=== PATIENT | male | born 1980 | race Caucasian/White ===

== ENCOUNTER 2016-08-20 10:11 | Emergency (ER) | payer MEDICAID ==
[2016-08-20 10:21] VITALS: TEMP 97.7
[2016-08-20] MEDS ORDERED: NITROGLYCERIN 0.4 MG TAB SL PRN (10:21)
[2016-08-20] MEDS ORDERED: ASPIRIN 81 MG CHEWABLE CTB ONE (10:21)
[2016-08-20] MEDS ORDERED: ASPIRIN 81 MG CHEWABLE CTB PO STA (10:21)
[2016-08-20] MEDS ORDERED: LORAZEPAM 2 MG/ML SOL IV ONE (10:24)
[2016-08-20] MEDS: SODIUM CHLORIDE 0.9% FLUSH 10 ML SOL IV PRN ×2 (10:25→10:30)
[2016-08-20] MEDS ORDERED: LIDOCAINE HCL 2% (VISCOUS) 20 ML SOL MT ONE (10:27)
[2016-08-20] MEDS ORDERED: LORAZEPAM 2 MG/ML SOL ONE (10:28)
[2016-08-20] MEDS ORDERED: ALUMINUM/MAGNESIUM 30 ML SUS PO ONE (10:29)
[2016-08-20 10:40] LABS: BASOPHILS % (AUTO) 2 % (0-3); EOSINOPHILS % (AUTO) 1 % (0-9); HEMATOCRIT 43 % (39-53); MEAN CORPUSCULAR HGB CONC 36.5 gm/dl (32.0-36.0); MEAN CORPUSCULAR VOLUME 82 fL (80-100); NEUTROPHILS % (AUTO) 47.6 % (37-80)
[2016-08-20] MEDS ORDERED: LIDOCAINE HCL 2% (VISCOUS) 20 ML SOL ONE (10:52)
[2016-08-20] MEDS ORDERED: ALUMINUM/MAGNESIUM 30 ML SUS ONE (10:52)
[2016-08-20 10:54] LABS: CALCIUM 8.3 mg/dl (8.5-10.1); GLOM FILT RATE 108 mL/min (>60); POTASSIUM 3.8 mMol/L (3.5-5.1); SODIUM 136 mMol/L (136-145)
[2016-08-20 12:09] VITALS: O2SAT 98
[2016-08-20 12:12] VITALS: BP 113/87; PULSE 90; RESP 18
== END 2016-08-20 12:01 | disposition home or self-care (01) | DRG 313 ==
LOC: ED 10:11
DX: R07.89 Other chest pain (principal)
CPT/HCPCS: 36415; 71010; 80048; 82550; 84484; 85025; 85610; 85730; 93005; 96374; 99284; J2060

== ENCOUNTER 2017-02-02 18:41 | Emergency (ER) | payer OTHER ==
[2017-02-02 19:14] VITALS: RESP 18; TEMP 98.3
[2017-02-02] MEDS ORDERED: MORPHINE SULFATE 10 MG/ML SOL IV ONE (19:34)
[2017-02-02] MEDS ORDERED: MORPHINE SULFATE 10 MG/ML SOL ONE (19:37)
[2017-02-02] MEDS: SODIUM CHLORIDE 0.9% FLUSH 10 ML SOL IV PRN ×3 (19:40→20:25)
[2017-02-02 20:08] LABS: BASOPHILS % (AUTO) 1 % (0-3); EOSINOPHILS % (AUTO) 1 % (0-9); HEMATOCRIT 38 % (39-53); MEAN CORPUSCULAR HGB CONC 35.5 gm/dl (32.0-36.0); MEAN CORPUSCULAR VOLUME 85 fL (80-100); MONOCYTES % (AUTO) 7.4 % (0-12); NEUTROPHILS % (AUTO) 72.3 % (37-80)
[2017-02-02 20:18] LABS: CALCIUM 8.1 mg/dl (8.5-10.1); POTASSIUM 4.2 mMol/L (3.5-5.1)
[2017-02-02] MEDS ORDERED: LIDOCAINE HCL 2% GEL TOP ONE ×2 (20:23→20:24)
[2017-02-02] MEDS ORDERED: KETOROLAC TROMETHAMINE 30 MG/ML SOL IV ONE (20:23)
[2017-02-02] MEDS ORDERED: KETOROLAC TROMETHAMINE 30 MG/ML SOL ONE (20:24)
[2017-02-02] MEDS ORDERED: APAP/OXYCODONE 325/5 TAB PO ONE (20:56)
[2017-02-02] MEDS ORDERED: VANCOMYCIN HCL 500 MG PDS 1,000 MG in SODIUM CHLORIDE 0.9% 250 ML 250 ML IV ONE (20:58)
[2017-02-02] MEDS ORDERED: VANCOMYCIN HYDROCHLORIDE 500 MG PDS IV ONE (21:00)
[2017-02-02] MEDS ORDERED: DOXYCYCLINE 100 MG TAB PO SCH (21:00)
[2017-02-02] MEDS ORDERED: APAP/OXYCODONE 325/5 TAB ONE (21:09)
[2017-02-02] MEDS ORDERED: DOXYCYCLINE 100 MG TAB ONE (21:11)
[2017-02-02 22:05] VITALS: BP 120/89; PULSE 83; O2SAT 97
== END 2017-02-02 22:10 | disposition home or self-care (01) | DRG 395 ==
LOC: ED 18:41
DX: K61.0 Anal abscess (principal); M54.5 Low back pain
CPT/HCPCS: 36415; 72193; 80048; 85025; 99285; J1885; J2270; J3370; Q9967

== ENCOUNTER 2017-02-06 19:13 | Emergency (ER) | payer OTHER ==
[2017-02-06 19:13] VITALS: O2SAT 99
[2017-02-06 19:37] VITALS: BP 143/98; PULSE 106; RESP 20; TEMP 97.8
[2017-02-06] MEDS ORDERED: KETOROLAC TROMETHAMINE 30 MG/ML SOL IM ONE (19:53)
[2017-02-06] MEDS ORDERED: KETOROLAC TROMETHAMINE 30 MG/ML SOL ONE (19:56)
== END 2017-02-06 20:16 | disposition home or self-care (01) | DRG 395 ==
LOC: ED 19:13
DX: K61.0 Anal abscess (principal)
CPT/HCPCS: 99282; J1885

== ENCOUNTER 2018-09-05 12:51 | Emergency (ER) | payer OTHER ==
[2018-09-05 13:59] VITALS: BP 133/95; PULSE 90; RESP 18; TEMP 98.2; O2SAT 97
== END 2018-09-05 14:11 | disposition home or self-care (01) | DRG 607 ==
LOC: ED 12:51
DX: L30.9 Dermatitis, unspecified (principal)
CPT/HCPCS: 99282